=== PATIENT | female | born 1955 | race Caucasian/White ===

== ENCOUNTER → 2017-04-30 | Outpatient (CLI) | payer BC ==
[~2017-04-30] MED LIST: Aspir 8181 MG; Daily Multiple1 EACH; EZET10; Fish Oil 10001000 MG; METF500; Omeprazole20 M1; Pravachol40 MG; Prinivil10 MG; RALO60; SITA100T2
== END | disposition home or self-care (01) ==
LOC: LAB EV 07:53
DX: N39.0 Urinary tract infection, site not specified (principal)
CPT/HCPCS: 87077; 87086; 87186

== ENCOUNTER → 2017-05-15 | Outpatient (CLI) | payer BC | LOC: LAB 08:30 | DX: N39.0 Urinary tract infection, site not specified (principal) | CPT/HCPCS: 87077; 87086; 87186 ==

== ENCOUNTER → 2018-08-03 | Outpatient (CLI) | payer BC | END | disposition home or self-care (01) | LOC: LAB EV 08:16 → LAB SHORT 08:16 | DX: N39.0 Urinary tract infection, site not specified (principal) | CPT/HCPCS: 87086 ==

== ENCOUNTER → 2018-09-24 | Outpatient (CLI) | payer BC | END | disposition home or self-care (01) | LOC: LAB SHORT 08:54 → LAB EV 08:54 | DX: N39.0 Urinary tract infection, site not specified (principal) | CPT/HCPCS: 87086 ==

== ENCOUNTER → 2019-02-23 | Outpatient (CLI) | payer BC | END | disposition home or self-care (01) | LOC: LAB EV 13:09 → LAB SHORT 13:09 | DX: N39.0 Urinary tract infection, site not specified (principal) | CPT/HCPCS: 87077; 87086; 87186 ==

== ENCOUNTER → 2019-03-23 | Outpatient (CLI) | payer BC | END | disposition home or self-care (01) | LOC: LAB SHORT 08:37 → LAB EV 08:37 | DX: N39.0 Urinary tract infection, site not specified (principal) | CPT/HCPCS: 87077; 87086; 87186 ==

== ENCOUNTER → 2019-08-15 | Outpatient (CLI) | payer BC | END | disposition home or self-care (01) | LOC: LAB EV 07:53 → LAB SHORT 07:53 | DX: N39.0 Urinary tract infection, site not specified (principal) | CPT/HCPCS: 87077; 87086; 87186 ==

== ENCOUNTER → 2019-10-05 | Outpatient (CLI) | payer BC | END | disposition home or self-care (01) | LOC: LAB EV 14:56 → LAB SHORT 14:56 | DX: N39.0 Urinary tract infection, site not specified (principal) | CPT/HCPCS: 87077; 87086; 87186 ==

== ENCOUNTER → 2019-12-02 | Outpatient (CLI) | payer BC | END | disposition home or self-care (01) | LOC: LAB EV 16:14 → LAB SHORT 16:14 | DX: N39.0 Urinary tract infection, site not specified (principal) | CPT/HCPCS: 87086 ==

== ENCOUNTER → 2020-01-06 | Outpatient (CLI) | payer BC | END | disposition home or self-care (01) | LOC: LAB SHORT 08:21 → LAB EV 08:21 | DX: N39.0 Urinary tract infection, site not specified (principal) | CPT/HCPCS: 87077; 87086; 87186 ==

== ENCOUNTER → 2020-01-15 | Outpatient (CLI) | payer BC | END | disposition home or self-care (01) | LOC: LAB SHORT 10:21 → LAB EV 10:21 | DX: N39.0 Urinary tract infection, site not specified (principal) | CPT/HCPCS: 87077; 87086; 87186 ==

== ENCOUNTER → 2020-02-14 | Outpatient (CLI) | payer BC | END | disposition home or self-care (01) | LOC: LAB EV 09:01 → LAB SHORT 09:01 | DX: N39.0 Urinary tract infection, site not specified (principal) | CPT/HCPCS: 87077; 87086; 87186 ==

== ENCOUNTER → 2020-12-21 | Outpatient (CLI) | payer BC | LOC: LAB SHORT 16:24 → LAB 16:24 | DX: N39.0 Urinary tract infection, site not specified (principal) | CPT/HCPCS: 87077; 87086; 87186 ==

== ENCOUNTER 2021-07-30 06:58 | Day surgery (SDC) | payer OTHER ==
[~2021-07-30] VITALS: Ht 162.6 cm; Wt 75.1 kg
[~2021-07-30 06:58] MED LIST changes: +ALLEGRA ALLERG180 MG PO; +ASCO500 PO; -Aspir 8181 MG; +Aspir 8181 MG PO; -EZET10; +EZET10 PO; +Estrace Vagin42.5 GM PV; +FAMO40 PO; +FERSU300 PO; +MAGNESIUM OXID500 MG PO; +METF500 PO; +PRAV20 PO; +Prinivil10 MG PO; +RALO60 PO; +TRULICITY0.75 MG/01 SC; +VITAMIN D325 MC3 PO
--- NOTE | 2021-07-30 08:38 | NUR ---
07/30/21 0838 Cassy Garcia History, Chart, Medications and Allergies reviewed before start of procedure. Patient confirms NPO status and agrees with scheduled surgery. 3-LEAD EKG REVIEWED WITH PHYSICIAN PRIOR TO START OF PROCEDURE. MONITOR INTACT WITH CONTINUOUS PULSE OXIMETRY AND INTERMITTENT BP. PATIENT DETERMINED TO BE ASA APPROPRIATE FOR PROPOFOL SEDATION PRIOR TO START OF PROCEDURE BY DR. METZ
--- NOTE | 2021-07-30 09:27 | NUR ---
DR BARROW AT BEDSIDE SPEAKING WITH PT AND AFTER PROCEDURE.
--- NOTE | 2021-07-30 09:53 | NUR ---
Discharge instructions reviewed with patient. Patient verbalizes understanding. Copy given to patient to take home. Discharged via wheelchair to private car for ride home.
== END 2021-07-30 09:54 | disposition home or self-care (01) ==
LOC: ORSCMMR 06:58 → ORD 08:00 → ORSCMMR 08:00
PROVIDERS: Student in an Organized Health Care Education/Training Program
PROC: 0DBK8ZX Excision of Ascending Colon, Via Natural or Artificial Opening Endoscopic, Diagnostic (ICD-10-PCS; principal; 2021-07-30 08:00)
PROC: 0D758ZZ Dilation of Esophagus, Via Natural or Artificial Opening Endoscopic (ICD-10-PCS; principal; 2021-07-30 08:00)
PROC: 0DB78ZX Excision of Stomach, Pylorus, Via Natural or Artificial Opening Endoscopic, Diagnostic (ICD-10-PCS; principal; 2021-07-30 08:00)
PROC: 0DB48ZX Excision of Esophagogastric Junction, Via Natural or Artificial Opening Endoscopic, Diagnostic (ICD-10-PCS; principal; 2021-07-30 08:00)
DX: K21.9 Gastro-esophageal reflux disease without esophagitis (principal); R13.10 Dysphagia, unspecified; K22.2 Esophageal obstruction; K44.9 Diaphragmatic hernia without obstruction or gangrene; K29.70 Gastritis, unspecified, without bleeding; Z12.11 Encounter for screening for malignant neoplasm of colon; K57.30 Diverticulosis of large intestine without perforation or abscess without bleeding; K64.8 Other hemorrhoids; Z86.010 Personal history of colon polyps; Z83.71 Family history of colonic polyps; Z79.899 Other long term (current) drug therapy; Z79.84 Long term (current) use of oral hypoglycemic drugs; Z79.82 Long term (current) use of aspirin; E66.9 Obesity, unspecified; Z68.36 Body mass index [BMI] 36.0-36.9, adult
CPT/HCPCS: 82947; 88305; 88342; C1726; J2704; J7120

== ENCOUNTER → 2021-12-05 | Outpatient (CLI) | payer OTHER | END | disposition home or self-care (01) | LOC: LAB 18:38 → LAB SHORT 18:38 | DX: N39.0 Urinary tract infection, site not specified (principal) | CPT/HCPCS: 87077; 87086; 87186 ==

== ENCOUNTER → 2021-12-19 | Outpatient (CLI) | payer OTHER | END | disposition home or self-care (01) | LOC: LAB 15:14 → LAB SHORT 15:14 | DX: N39.0 Urinary tract infection, site not specified (principal) | CPT/HCPCS: 87077; 87086; 87186 ==

== ENCOUNTER → 2022-01-13 | Outpatient (CLI) | payer OTHER | END | disposition home or self-care (01) | LOC: LAB SHORT 08:17 → LAB 08:17 | DX: N39.0 Urinary tract infection, site not specified (principal) | CPT/HCPCS: 87077; 87086; 87186 ==

== ENCOUNTER → 2022-11-11 | Outpatient (CLI) | payer OTHER | END | disposition home or self-care (01) | LOC: LAB SHORT 09:41 → LAB 09:41 | DX: N39.0 Urinary tract infection, site not specified (principal) | CPT/HCPCS: 87077; 87086; 87186 ==

== ENCOUNTER 2022-11-20 13:38 | Observation (INO) | payer OTHER ==
[~2022-11-20] VITALS: Ht 162.6 cm; Wt 73.0 kg
[~2022-11-20 13:38] MED LIST changes: -ACET325 PO; -OMEP20ER PO; -TRULICITY3 MG/0.5 M SC
[2022-11-20] MEDS ORDERED: OMEP20ER PO (14:39)
[2022-11-20 18:05] VITALS: BP 150/84
[2022-11-20 19:14] VITALS: BP 158/75
--- NOTE | 2022-11-20 19:59 | NUR ---
PT ARRIVED TO THE ROOM AT 1800. PAIN MANAGED AT TIME OF ARRIVAL TO THE ROOM. PT REPORTED SHE WANTED FOOD, DIET ORDER CLARIFIED WITH DR. FUCHS. PT SETTLED INTO ROOM AND ORIENTED TO CALL LIGHT. REPORT GIVEN TO KAVITA DORSEY.
[2022-11-21] VITALS (16 sets, daily range): BP systolic 99–165; BP diastolic 45–105
[2022-11-21 05:32] LABS: BASOPHILS ABSOLUTE AUTO 0.06 K/mm3 (0.00-0.23); BASOPHILS PERCENT AUTO 1 % (0-2); EOSINOPHILS PERCENT AUTO 1 % (0-6); Hematocrit 44.6 % (33.0-51.0); Hemoglobin 15.1 g/dL (11.5-16.0); IMMATURE GRAN ABSOLUTE AUTO 0.03 K/mm3 (0.00-0.10); IMMATURE GRAN PERCENT AUTO 0 % (0-1); LYMPHOCYTES ABSOLUTE AUTO 2.06 K/mm3 (0.84-5.20); LYMPHOCYTES PERCENT AUTO 18 % (21-46); MONOCYTES ABSOLUTE AUTO 0.87 K/mm3 (0.16-1.47); MONOCYTES PERCENT AUTO 8 % (4-13); Mean Corpuscular HGB 30.1 pg (26.0-34.0); Mean Corpuscular HGB Conc 33.9 g/dL (31.5-36.5); Mean Corpuscular Volume 89 fL (80-100); Mean Platelet Volume 10.7 fL (9.1-12.4); NEUTROPHILS ABSOLUTE AUTO 8.51 K/mm3 (1.96-9.15); NEUTROPHILS PERCENT AUTO 73 % (41-73); Platelet Count 267 K/mm3 (150-400); RDW Coefficient Variation 13.8 % (11.7-14.2); RDW Standard Deviation 44.9 fL (35.1-46.3); Red Blood Cell Count 5.01 M/mm3 (3.80-5.20); White Blood Cell Count 11.63 K/mm3 (4.00-11.30)
[2022-11-21 05:41] LABS: International Normalized Ratio 0.95
[2022-11-21 06:33] LABS: Albumin, Blood 3.6 g/dL (3.4-5.0); Albumin/Globulin Ratio 1.1 (0.8-1.8); Bilirubin, Total 0.4 mg/dL (0.1-1.0); Bun/Creatinine Ratio 11.2 (12.0-20.0); Calcium, Blood 8.2 mg/dL (8.5-10.1); Creatinine, Blood 0.63 mg/dL (0.40-1.00); Globulin, Blood 3.4 g/dL (2.2-4.0); Magnesium, Blood 2.1 mg/dL (1.6-2.4); Phosphorus, Blood 2.7 mg/dL (2.5-4.9); Potassium, Blood 4.1 mmol/L (3.5-5.5)
--- NOTE | 2022-11-21 07:58 | NUR ---
SUMMARY PT NPO PENDING OR TODAY. MED IV FOR PAIN.
[2022-11-21] MEDS ORDERED: TRULICITY3 MG/0.5 M SC (10:54)
--- NOTE | 2022-11-21 12:25 | NUR ---
Into [facility] via [employer]. Pt A&ox4-reports 2/10 abdominal pain. History, Chart, Medications and Allergies reviewed before start of procedure.Lungs clear T/O to Auscultation. Patient confirms NPO status and agrees with scheduled surgery. Surgical site prepped with 2% Chlorhexidine cloth [id number].
--- NOTE | 2022-11-21 15:33 | NUR ---
POST OP ARRIVED FROM PACU VIA GURNEY, TRANSFERRED TO BED, AWAKE, A&OX4, DENIES ANY PAIN OR NAUSEA, LUNGS CLEAR T/O, HRR, ACTIVE BT'S X4, ABD SOFT, ABD LAP INCISIONS X4 W/ STERISTRIPS W/ SCANT SEROUSANG. DRAINAGE UNDER STERISTRIPS, DENIES ANY SOB, OCCASSIONAL DRY NPC NOTED, CONT. TO MONITOR VS AND ANY CHANGES.
--- NOTE | 2022-11-21 17:41 | NUR ---
SUMMARY VSS, DENIES ANY PAIN, TOLERATING REGULAR DINNER, OOB TO CHAIR, AMBULATED TO THE BATHROOM, VOIDED WITHOUT DIFFICULTY, NO ACUTE CHANGES THIS SHIFT.
[2022-11-22 04:12] VITALS: BP 106/59
--- NOTE | 2022-11-22 05:31 | NUR ---
SHIFT SUMMARY PT HAS SLEPT WELL T/O NIGHT. LAP SITES TO ABD REMAIN CDI. DENIES PAIN. IV ABX PER ORDERS. DELORIS DIET. INDEP TO RESTROOM. PT WANTING TO DC HOME TODAY. USES CALL LIGHT APPRORIATELY.
[2022-11-22 07:09] VITALS: BP 129/78
[2022-11-22] MEDS ORDERED: ACET325 PO (11:31)
--- NOTE | 2022-11-22 11:47 | NUR ---
DISCHARGE POD 1 LAP LOW PT AA0X4, DENIES PAIN DURING SHIFT. TOLERATING DIET WELL. NO NAUSEA. PASSING FLATUS. DISCHARGE INSTRUCTIONS GONE OVER WITH PATIENT. DENIES FURTHER QUESTIONS. IV REMOVED WNL. PT AWAITING HER RIDE AND WILL BE TAKEN OUT WITH WHEELCHAIR.
== END 2022-11-22 11:55 | disposition home or self-care (01) ==
LOC: ER 13:38 → SURS 13:39 → ER 13:39 → SURS 13:39
PROVIDERS: ADMIT Family Medicine
PROC: 0FT44ZZ Resection of Gallbladder, Percutaneous Endoscopic Approach (ICD-10-PCS; principal; 2022-11-20)
DX: K80.12 Calculus of gallbladder with acute and chronic cholecystitis without obstruction (principal); N32.89 Other specified disorders of bladder; I10 Essential (primary) hypertension; E11.9 Type 2 diabetes mellitus without complications; K21.9 Gastro-esophageal reflux disease without esophagitis; M81.0 Age-related osteoporosis without current pathological fracture; E78.5 Hyperlipidemia, unspecified; Z88.1 Allergy status to other antibiotic agents; Z79.84 Long term (current) use of oral hypoglycemic drugs; Z87.891 Personal history of nicotine dependence; K76.0 Fatty (change of) liver, not elsewhere classified; R10.13 Epigastric pain
CPT/HCPCS: 36415; 76705; 80053; 82947; 83735; 84100; 85025; 85610; 88304; 99284-25; A9270; J1100; J1650; J1885; J2250; J2270; J2405; J2543; J2704; J3010; J7050; J7120

== ENCOUNTER → 2022-11-20 | Outpatient (CLI) | payer OTHER ==
[~2022-11-20] MED LIST changes: +ACET325 PO; +OMEP20ER PO; +TRULICITY3 MG/0.5 M SC
[2022-11-20 10:54] LABS: BASOPHILS ABSOLUTE AUTO 0.05 K/mm3 (0.00-0.23); BASOPHILS PERCENT AUTO 0 % (0-2); EOSINOPHILS ABSOLUTE AUTO 0.07 K/mm3 (0.00-0.68); EOSINOPHILS PERCENT AUTO 1 % (0-6); Hematocrit 46.6 % (33.0-51.0); Hemoglobin 16.2 g/dL (11.5-16.0); IMMATURE GRAN ABSOLUTE AUTO 0.04 K/mm3 (0.00-0.10); IMMATURE GRAN PERCENT AUTO 0 % (0-1); LYMPHOCYTES ABSOLUTE AUTO 1.33 K/mm3 (0.84-5.20); LYMPHOCYTES PERCENT AUTO 10 % (21-46); MONOCYTES ABSOLUTE AUTO 0.77 K/mm3 (0.16-1.47); MONOCYTES PERCENT AUTO 6 % (4-13); Mean Corpuscular HGB 30.6 pg (26.0-34.0); Mean Corpuscular HGB Conc 34.8 g/dL (31.5-36.5); Mean Corpuscular Volume 88 fL (80-100); Mean Platelet Volume 10.5 fL (9.1-12.4); NEUTROPHILS ABSOLUTE AUTO 11.07 K/mm3 (1.96-9.15); NEUTROPHILS PERCENT AUTO 83 % (41-73); Platelet Count 291 K/mm3 (150-400); RDW Coefficient Variation 13.8 % (11.7-14.2); RDW Standard Deviation 44.1 fL (35.1-46.3); Red Blood Cell Count 5.29 M/mm3 (3.80-5.20); White Blood Cell Count 13.33 K/mm3 (4.00-11.30)
[2022-11-20 11:10] LABS: Albumin/Globulin Ratio 1.1 (0.8-1.8); Bilirubin, Total 0.3 mg/dL (0.1-1.0); Bun/Creatinine Ratio 16.4 (12.0-20.0); Calcium, Blood 8.6 mg/dL (8.5-10.1); Creatinine, Blood 0.61 mg/dL (0.40-1.00); Globulin, Blood 3.7 g/dL (2.2-4.0); Potassium, Blood 4.3 mmol/L (3.5-5.5); Total Protein, Blood 7.7 g/dL (6.4-8.2)
== END ==
LOC: LAB 10:49 → LAB SHORT 10:49
PROVIDERS: Physician Assistant Surgical
DX: R10.13 Epigastric pain (principal)
CPT/HCPCS: 80053; 83690; 85025

== ENCOUNTER → 2022-12-16 | Outpatient (CLI) | payer OTHER ==
[~2022-12-16] MED LIST changes: +ACET325 PO; +OMEP20ER PO; +TRULICITY3 MG/0.5 M SC
== END | disposition home or self-care (01) ==
LOC: LAB SHORT 12:28 → LAB 12:28
DX: N39.0 Urinary tract infection, site not specified (principal)
CPT/HCPCS: 87086

== ENCOUNTER → 2023-11-29 | Outpatient (CLI) | payer OTHER | END | disposition home or self-care (01) | LOC: LAB SHORT 13:20 → LAB 13:20 | DX: N39.0 Urinary tract infection, site not specified (principal) | CPT/HCPCS: 87077; 87086; 87186 ==

== ENCOUNTER → 2023-12-13 | Outpatient (CLI) | payer OTHER | END | disposition home or self-care (01) | LOC: LAB SHORT 14:54 → LAB 14:54 | DX: R30.0 Dysuria (principal) | CPT/HCPCS: 87077; 87086; 87186 ==

== ENCOUNTER → 2023-12-27 | Outpatient (CLI) | payer OTHER | LOC: LAB 10:42 → LAB SHORT 10:42 | DX: N39.0 Urinary tract infection, site not specified (principal) | CPT/HCPCS: 87077; 87086; 87186 ==

== ENCOUNTER → 2024-01-11 | Outpatient (CLI) | payer OTHER | END | disposition home or self-care (01) | LOC: LAB 09:57 → LAB SHORT 09:57 | DX: N39.0 Urinary tract infection, site not specified (principal) | CPT/HCPCS: 87077; 87086; 87186 ==

== ENCOUNTER → 2024-02-17 | Outpatient (CLI) | payer OTHER | LOC: LAB SHORT 10:21 → LAB 10:21 | DX: N39.0 Urinary tract infection, site not specified (principal) | CPT/HCPCS: 87077; 87086; 87186 ==

== ENCOUNTER → 2024-03-05 | Outpatient (CLI) | payer OTHER | LOC: LAB SHORT 11:28 → LAB 11:28 | DX: N39.0 Urinary tract infection, site not specified (principal) | CPT/HCPCS: 87077; 87086; 87186 ==

== ENCOUNTER → 2024-11-15 | Outpatient (CLI) | payer OTHER | LOC: LAB SHORT 13:09 → LAB 13:09 | DX: N39.0 Urinary tract infection, site not specified (principal) | CPT/HCPCS: 87077; 87086; 87186; 87335 ==

== ENCOUNTER → 2024-11-30 | Outpatient (CLI) | payer OTHER ==
[~2024-11-30] MED LIST changes: +OZEMPIC2 MG/0.75 SQ
== END ==
LOC: LAB 07:50 → LAB SHORT 07:50
DX: N39.0 Urinary tract infection, site not specified (principal)
CPT/HCPCS: 87077; 87086; 87186

== ENCOUNTER 2024-12-06 11:26 | Day surgery (SDC) | payer OTHER ==
[~2024-12-06] VITALS: Ht 162.6 cm; Wt 71.2 kg
[~2024-12-06 11:26] MED LIST changes: +Balanced Salt Epinephrine Irrigation Solution 500 mL IR SCH; +Moxifloxacin HCL 0.5 MG/0.1 ML 0.4MLSYR RIGHTEYE SCH; +PHENYLEPHRINE\\TROPICAMIDE\\TETRACAINE OPHTHALMIC DILATING SOLN RIGHTEYE PRN; +Povidone-Iodine 450 DROP/30 ML Solution ONE; +Povidone-Iodine 450 DROP/30 ML Solution RIGHTEYE SCH; +Tetracaine HCl/Pf 0.5% Opth Soln 4 ml ONE
--- NOTE | 2024-12-06 11:58 | NUR ---
12/06/24 Halima Roe CALL LIGHT WITHIN REACH.
[2024-12-06] MEDS ORDERED: NS 500 ML IV ONE (12:01)
[2024-12-06] MEDS ORDERED: Tetracaine HCl 0.5% Opth Soln 15 ml RIGHTEYE ONE (12:33)
[2024-12-06] MEDS ORDERED: Midazolam HCl 1MG / ML 2ML Vial ONE (12:34)
[2024-12-06 13:15] VITALS: BP 127/85
== END 2024-12-06 13:10 | disposition home or self-care (01) ==
LOC: ORSCSDS 11:26
PROVIDERS: Student in an Organized Health Care Education/Training Program
PROC: 08RJ3JZ Replacement of Right Lens with Synthetic Substitute, Percutaneous Approach (ICD-10-PCS; principal; 2024-12-06 13:00)
DX: E11.36 Type 2 diabetes mellitus with diabetic cataract (principal); H25.811 Combined forms of age-related cataract, right eye; Z96.1 Presence of intraocular lens; I10 Essential (primary) hypertension; E78.5 Hyperlipidemia, unspecified; G47.33 Obstructive sleep apnea (adult) (pediatric); K21.9 Gastro-esophageal reflux disease without esophagitis; Z79.82 Long term (current) use of aspirin; Z79.84 Long term (current) use of oral hypoglycemic drugs; Z79.85 Long-term (current) use of injectable non-insulin antidiabetic drugs; Z79.899 Other long term (current) drug therapy
CPT/HCPCS: 82947; J2250; J7040; V2632

== ENCOUNTER → 2024-12-19 | Outpatient (CLI) | payer OTHER ==
[~2024-12-19] MED LIST changes: -Balanced Salt Epinephrine Irrigation Solution 500 mL IR SCH; -Moxifloxacin HCL 0.5 MG/0.1 ML 0.4MLSYR RIGHTEYE SCH; -PHENYLEPHRINE\\TROPICAMIDE\\TETRACAINE OPHTHALMIC DILATING SOLN RIGHTEYE PRN; -Povidone-Iodine 450 DROP/30 ML Solution ONE; -Povidone-Iodine 450 DROP/30 ML Solution RIGHTEYE SCH; -Tetracaine HCl/Pf 0.5% Opth Soln 4 ml ONE
== END ==
LOC: LAB 12:51 → LAB SHORT 12:51
DX: N39.0 Urinary tract infection, site not specified (principal)
CPT/HCPCS: 87077; 87086; 87186

== ENCOUNTER → 2025-01-27 | Outpatient (CLI) | payer OTHER | LOC: LAB SHORT 14:29 → LAB 14:29 | DX: N39.0 Urinary tract infection, site not specified (principal) | CPT/HCPCS: 87077; 87086; 87186 ==

== ENCOUNTER → 2025-02-12 | Outpatient (CLI) | payer OTHER | LOC: LAB 10:09 → LAB SHORT 10:09 | DX: N39.0 Urinary tract infection, site not specified (principal) | CPT/HCPCS: 87077; 87086; 87186 ==

== ENCOUNTER → 2025-03-02 | Outpatient (CLI) | payer OTHER | LOC: LAB SHORT 16:32 → LAB 16:32 | DX: N39.0 Urinary tract infection, site not specified (principal) | CPT/HCPCS: 87077; 87086; 87186 ==

== ENCOUNTER → 2025-03-22 | Outpatient (CLI) | payer OTHER | LOC: LAB 17:55 → LAB SHORT 17:55 | DX: N39.0 Urinary tract infection, site not specified (principal); R31.9 Hematuria, unspecified | CPT/HCPCS: 87077; 87086; 87186 ==